=== PATIENT | male | born 1950 | race Two or more races ===

== ENCOUNTER 2021-08-26 13:26 | Inpatient (IN) | payer OTHER ==
[2021-08-26 14:41] VITALS: BMI 23.7
[2021-08-26] MEDS ORDERED: MAGNESIUM CITRATE 300 ML BOTTLE PO PRN (18:29)
[2021-08-26] MEDS ORDERED: hydrOXYzine PAMOATE 25 MG CAPSULE (FP) PO PRN (18:29)
[2021-08-26] MEDS ORDERED: IBUPROFEN 400 MG TABLET (FP) PO PRN (18:29)
[2021-08-26] MEDS ORDERED: guaiFENesin 200 MG/10 ML 10 ML UNIT-DOSE CUPS PO PRN (18:29)
[2021-08-26] MEDS ORDERED: MAG HYDROX/AL HYDROX/SIMETH 30 ML UNIT-DOSE CUP PO PRN (18:29)
[2021-08-26] MEDS ORDERED: ACETAMINOPHEN 325 MG TABLET (FP) PO PRN (18:29)
[2021-08-26] MEDS ORDERED: LOPERAMIDE HCL 2 MG CAPSULE PO PRN (18:29)
[2021-08-26] MEDS ORDERED: P-EPHED 60MG/TRIPROLIDI 2.5MG TABLET PO PRN (18:29)
[2021-08-26] MEDS ORDERED: MAGNESIUM HYDROX 2400MG/30ML ORAL SUSPENSION 30 ML CUP PO PRN (18:29)
[2021-08-27] MEDS ORDERED: TUBERCULIN PPD 5 TU/0.1ML VIAL ID ONE (00:17)
[2021-08-27] MEDS: THIAMINE HCL 100 MG TABLET (FP) PO SCH ×2 (01:24→21:22)
[2021-08-27] MEDS: methaDONE HCL 10 MG TABLET PO SCH (07:59)
[2021-08-27] MEDS: PRENATAL VITAMINS W/ FOLIC ACID TABLET (FP) PO SCH (09:32)
[2021-08-27 11:03] LABS: BLOOD UREA NITROGEN 5.7 mg/dL (7-18); CREATININE 0.5 mg/dL (0.55-1.3)
[2021-08-27 11:04] LABS: TOT PROT 7.6 g/dl (6.4-8.2)
[2021-08-27 11:05] LABS: BILIRUBIN,TOTAL 0.8 mg/dL (0.2-1); CALCIUM 8.7 mg/dL (8.5-10.1)
[2021-08-27 12:59] LABS: HEMATOCRIT 33.8 % (35.4-49); HEMOGLOBIN 12.5 GM/dL (11.7-16.9); MCH 38.9 pg (25.7-33.7); MEAN CELL VOLUME 104.9 fl (80-96); RBC 3.22 M/mm3 (4.00-5.60); RDW 16.2 % (11.9-15.9)
[2021-08-27] MEDS: ABACAVIR/DOLUTEGRAVIR/LAMIVUDI (TRIUMEQ) TABLET -NF PO SCH (13:00)
[2021-08-27] MEDS: MELATONIN 5 MG TABLETS PO PRN (21:22)
[2021-08-28] MEDS: methaDONE HCL 10 MG TABLET PO SCH (06:27)
[2021-08-28 07:04] VITALS: PULSE 60
[2021-08-28] MEDS: ABACAVIR/DOLUTEGRAVIR/LAMIVUDI (TRIUMEQ) TABLET -NF PO SCH (09:44)
[2021-08-28] MEDS: PRENATAL VITAMINS W/ FOLIC ACID TABLET (FP) PO SCH (09:44)
[2021-08-28] MEDS: MELATONIN 5 MG TABLETS PO PRN (21:10)
[2021-08-28] MEDS: THIAMINE HCL 100 MG TABLET (FP) PO SCH (21:10)
[2021-08-29] MEDS: methaDONE HCL 10 MG TABLET PO SCH (06:34)
[2021-08-29 06:39] VITALS: BP 132/56; TEMP 97.8
[2021-08-29] MEDS: PRENATAL VITAMINS W/ FOLIC ACID TABLET (FP) PO SCH (10:06)
[2021-08-29] MEDS: ABACAVIR/DOLUTEGRAVIR/LAMIVUDI (TRIUMEQ) TABLET -NF PO SCH (10:06)
== END 2021-08-29 14:42 | disposition home or self-care (01) | DRG 895 ==
LOC: YASAS 13:26 → Y3E 23:48
PROVIDERS: ADMIT Allergy & Immunology; ATTEND Psychiatry & Neurology Pain Medicine
PROC: HZ42ZZZ Group Counseling for Substance Abuse Treatment, Cognitive-Behavioral (ICD-10-PCS; principal; 2021-08-26)
DX: F11.20 Opioid dependence, uncomplicated (principal); F17.210 Nicotine dependence, cigarettes, uncomplicated; Z21 Asymptomatic human immunodeficiency virus [HIV] infection status
CPT/HCPCS: 36415; 80053; 85027; 86780; C9803-CS; U0003; U0005